=== PATIENT | male | born 1955 | race Caucasian/White ===

== ENCOUNTER 2023-04-05 15:59 | Inpatient (IN) | payer MEDICARE, OTHER ==
[~2023-04-05] VITALS: Ht 177.8 cm; Wt 111.1 kg
[2023-04-05] MEDS ORDERED: IV NS 0.9% 1,000 ML BAG IV ONE (16:30)
[2023-04-05 16:51] LABS: HEMATOCRIT 37 % (39-51); HEMOGLOBIN 12.5 g/dL (13.5-17.5); MEAN CORPUSCULAR VOLUME 95 fL (80-96); RED BLOOD CELL COUNT(AUTO) 3.95 MIL/uL (4.5-6.0); WHITE BLOOD COUNT (AUTO) 10.2 K/uL (4.3-11.0)
[2023-04-05 16:52] LABS: BASOPHILS % (AUTO) 0.4 % (0.0-2.0); EOSINOPHILS # (AUTO) 0.1 K/uL (0.0-0.7); EOSINOPHILS % (AUTO) 0.6 % (0.0-6.0); LYMPHOCYTES # (AUTO) 1.5 K/uL (0.8-4.8); LYMPHOCYTES % (AUTO) 14.5 % (20.0-44.0); MEAN CORPUSCULAR HEMOGLOBIN 32 PG (26.0-33.0); MEAN CORPUSCULAR HGB CONC 34 g/dl (31.0-36.0); MONOCYTES # (AUTO) 0.7 K/uL (0.1-1.30); MONOCYTES % (AUTO) 6.9 % (2.0-12.0); NEUTROPHILS # (AUTO) 7.9 K/uL (1.8-8.9); NEUTROPHILS % (AUTO) 77.6 % (43.0-81.0); PLATELET COUNT (AUTO) 315 K/uL (150-450); RED CELL DISTRIBUTION WIDTH 14.9 % (11.5-15.0)
[2023-04-05] MEDS ORDERED: PANT40TA2 PO (16:59)
[2023-04-05] MEDS ORDERED: ACET-868 PO (16:59)
[2023-04-05] MEDS ORDERED: CARB1TAB21 PO (16:59)
[2023-04-05] MEDS ORDERED: RISP0.5T65 PO (16:59)
[2023-04-05] MEDS ORDERED: ROPI3TAB4 PO (16:59)
[2023-04-05] MEDS ORDERED: ATEN50TA PO (16:59)
[2023-04-05] MEDS ORDERED: AMLO5TAB4 PO (16:59)
[2023-04-05] MEDS ORDERED: [UNRECOGNIZED DRUG - OTHER] PO (16:59)
[2023-04-05] MEDS ORDERED: GABA300C PO (16:59)
[2023-04-05] MEDS ORDERED: ASCO-340 PO (16:59)
[2023-04-05] MEDS ORDERED: MAGN400O6 PO (16:59)
[2023-04-05] MEDS ORDERED: NYST30CR2 TP (16:59)
[2023-04-05] MEDS ORDERED: FLUO40CA49 PO (16:59)
[2023-04-05] MEDS ORDERED: DOCU100C36 PO (16:59)
[2023-04-05] MEDS ORDERED: BENA40TA8 PO (16:59)
[2023-04-05] MEDS ORDERED: NAPR-1192 PO (16:59)
[2023-04-05] MEDS ORDERED: CHOL200059 PO (16:59)
[2023-04-05 17:02] LABS: CALCIUM, SERUM 8.3 mg/dL (8.5-10.1); CARBON DIOXIDE 27 mmol/L (21-32); CHLORIDE 107 mmol/L (98-107); CREATININE 1.5 mg/dL (0.6-1.3); GLUCOSE 137 mg/dL (74-106); POTASSIUM 3.7 mmol/L (3.5-5.1); SODIUM SERUM 142 mmol/L (136-145); UREA NITROGEN, BLOOD 24 mg/dL (7-18)
[2023-04-05 17:03] LABS: SERUM AMMONIA 13 umol/L (11-32)
[2023-04-05 17:05] LABS: INR 1.04 (0.91-1.10); PARTIAL THROMBOPLASTIN TIME 27.3 SEC (24.3-34.3)
[2023-04-05 17:08] LABS: ALANINE AMINOTRANSFERASE 19 U/L (12-78); ALBUMIN 3.3 g/dL (3.4-5.0); ALKALINE PHOSPHATASE 171 U/L (46-116); ASPARTATE AMINOTRANSFERASE 31 U/L (15-37); BILIRUBIN,DIRECT 0.2 mg/dL (0.0-0.2); BILIRUBIN,TOTAL 0.5 mg/dL (0.2-1.0); TOTAL PROTEIN, SERUM 7.3 g/dL (6.4-8.2)
[2023-04-05 17:25] LABS: ACETAMINOPHEN <10 ug/ml (10-30); ALCOHOL, BLOOD < 3 mg/dL (0-10); SALICYLATE 0.6 mg/dL (2.8-20.0)
[2023-04-05] MEDS ORDERED: MAG HYDROX/AL HYDROX/SIMETH 30 ML UDC PO PRN (18:30)
[2023-04-05] MEDS ORDERED: Z GUARD REMEDY 4 OZ OINT TP PRN (18:30)
[2023-04-05] MEDS ORDERED: MAGNESIUM HYDROXIDE 30 ML UDC PO PRN (18:30)
[2023-04-05] MEDS ORDERED: ACETAMINOPHEN 325 MG TABLET PO PRN ×2 (18:30→19:30)
[2023-04-05] MEDS ORDERED: ONDANSETRON HCL/PF 4 MG/2 ML VIAL IVP PRN (18:30)
[2023-04-05 18:46] LABS: APPEARANCE,URINE CLEAR (CLEAR); BILIRUBIN,URINE NEGATIVE (NEGATIVE); BLOOD, URINE NEGATIVE Ery/uL (NEGATIVE); COLOR,URINE YELLOW (YELLOW); KETONES,URINE TRACE mg/dL (NEGATIVE); LEUKOCYTE ESTERASE ,URINE NEGATIVE (NEGATIVE); NITRITE, URINE NEGATIVE (NEGATIVE); PH,URINE 5.5 (5.0-8.0); PROTEIN,URINE NEGATIVE (NEGATIVE); UGLUCOSE NEGATIVE (NEGATIVE)
[2023-04-05 19:02] LABS: AMPHETAMINE, URINE NEGATIVE (NEGATIVE); BARBITURATE, URINE NEGATIVE (NEGATIVE); BENZODIAZEPINE, URINE NEGATIVE (NEGATIVE); CANNABINOID, URINE NEGATIVE (NEGATIVE); COCCAINE, URINE NEGATIVE (NEGATIVE); OPIATE, URINE NEGATIVE (NEGATIVE); PHENCYCLIDINE SCREEN,URINE NEGATIVE (NEGATIVE)
[2023-04-05] MEDS ORDERED: NAPROXEN 375 MG TABLET.DR PO PRN (19:30)
[2023-04-05 22:00] VITALS: BP 132/86; TEMP 98.2; O2SAT 98
[2023-04-05] MEDS: ropiniROLE 0.5 MG TABLET PO SCH (22:11)
[2023-04-05] MEDS: GABAPENTIN 300 MG CAPSULE PO SCH (22:11)
[2023-04-05] MEDS: CARBIDOPA/LEVODOPA 25/100 MG 1 UDTAB PO SCH (22:11)
[2023-04-05] MEDS: IV NS 0.9% 1,000 ML IV PRN (23:07)
[2023-04-06] VITALS: BP 114/82; TEMP 97.1; O2SAT 96
[2023-04-06 04:00] VITALS: BP 112/81; TEMP 98.2; O2SAT 96
[2023-04-06 09:00] LABS: BASOPHILS % (AUTO) 0.5 % (0.0-2.0); EOSINOPHILS % (AUTO) 0.5 % (0.0-6.0); HEMATOCRIT 37 % (39-51); HEMOGLOBIN 12.3 g/dL (13.5-17.5); LYMPHOCYTES # (AUTO) 1.2 K/uL (0.8-4.8); LYMPHOCYTES % (AUTO) 12.2 % (20.0-44.0); MEAN CORPUSCULAR HEMOGLOBIN 31 PG (26.0-33.0); MEAN CORPUSCULAR HGB CONC 33 g/dl (31.0-36.0); MEAN CORPUSCULAR VOLUME 94 fL (80-96); MONOCYTES # (AUTO) 0.4 K/uL (0.1-1.30); MONOCYTES % (AUTO) 4.5 % (2.0-12.0); NEUTROPHILS % (AUTO) 82.3 % (43.0-81.0); PLATELET COUNT (AUTO) 282 K/uL (150-450); RED BLOOD CELL COUNT(AUTO) 3.94 MIL/uL (4.5-6.0); RED CELL DISTRIBUTION WIDTH 14.2 % (11.5-15.0); WHITE BLOOD COUNT (AUTO) 9.7 K/uL (4.3-11.0)
[2023-04-06 09:10] LABS: CREATININE 1.2 mg/dL (0.6-1.3); MAGNESIUM 2.2 mg/dL (1.8-2.4); PHOSPHORUS 3.5 mg/dL (2.5-4.9); POTASSIUM 3.7 mmol/L (3.5-5.1)
[2023-04-06] MEDS: ASCORBIC ACID 500 MG TABLET PO SCH (09:10)
[2023-04-06] MEDS: ATENOLOL 50 MG TABLET PO SCH (09:11)
[2023-04-06] MEDS: risperiDONE 0.25 MG TABLET PO SCH ×2 (09:11→17:45)
[2023-04-06] MEDS: AMLODIPINE BESYLATE 5 MG TABLET PO SCH (09:11)
[2023-04-06] MEDS: DOCUSATE SODIUM 100 MG CAPSULE PO SCH (09:11)
[2023-04-06] MEDS: MAGNESIUM HYDROXIDE 30 ML UDC PO SCH (09:11)
[2023-04-06] MEDS: ropiniROLE 0.5 MG TABLET PO SCH ×4 (09:12→21:53)
[2023-04-06] MEDS: CARBIDOPA/LEVODOPA 25/100 MG 1 UDTAB PO SCH ×4 (09:12→21:54)
[2023-04-06] MEDS: NYSTATIN CREAM 15 GM TUBE TP SCH ×2 (09:12→17:47)
[2023-04-06] MEDS: FLUOXETINE HCL 20 MG CAPSULE PO SCH (09:12)
[2023-04-06] MEDS: PANTOPRAZOLE 40 MG TABLET.DR PO SCH (09:14)
[2023-04-06 10:33] VITALS: BP 132/81; TEMP 98.2; O2SAT 96
[2023-04-06 12:10] VITALS: BP 132/81; TEMP 98.2; O2SAT 96
[2023-04-06] MEDS: GABAPENTIN 300 MG CAPSULE PO SCH (21:54)
[2023-04-06] MEDS: LORAZEPAM 0.5 MG TABLET PO PRN (22:00)
[2023-04-07] MEDS: risperiDONE 0.25 MG TABLET PO SCH ×2 (09:00→17:16)
[2023-04-07] MEDS: FLUOXETINE HCL 20 MG CAPSULE PO SCH (09:00)
[2023-04-07] MEDS: MAGNESIUM HYDROXIDE 30 ML UDC PO SCH (09:00)
[2023-04-07] MEDS: ropiniROLE 0.5 MG TABLET PO SCH ×4 (09:00→22:19)
[2023-04-07] MEDS: ASCORBIC ACID 500 MG TABLET PO SCH (09:01)
[2023-04-07] MEDS: DOCUSATE SODIUM 100 MG CAPSULE PO SCH (09:01)
[2023-04-07] MEDS: PANTOPRAZOLE 40 MG TABLET.DR PO SCH (09:01)
[2023-04-07] MEDS: CARBIDOPA/LEVODOPA 25/100 MG 1 UDTAB PO SCH ×4 (09:01→22:18)
[2023-04-07] MEDS: ATENOLOL 50 MG TABLET PO SCH (09:02)
[2023-04-07] MEDS: AMLODIPINE BESYLATE 5 MG TABLET PO SCH (09:02)
[2023-04-07] MEDS: NYSTATIN CREAM 15 GM TUBE TP SCH ×2 (09:12→17:27)
[2023-04-07 20:41] VITALS: BP 100/63; TEMP 98.6; O2SAT 98
[2023-04-07] MEDS: GABAPENTIN 300 MG CAPSULE PO SCH (22:18)
[2023-04-08 04:02] VITALS: BP 96/67; TEMP 98.8; O2SAT 98
[2023-04-08 07:04] LABS: BASOPHILS % (AUTO) 0.3 % (0.0-2.0); EOSINOPHILS # (AUTO) 0.2 K/uL (0.0-0.7); EOSINOPHILS % (AUTO) 1.5 % (0.0-6.0); HEMATOCRIT 38 % (39-51); HEMOGLOBIN 12.5 g/dL (13.5-17.5); LYMPHOCYTES # (AUTO) 1.7 K/uL (0.8-4.8); LYMPHOCYTES % (AUTO) 16.3 % (20.0-44.0); MEAN CORPUSCULAR HEMOGLOBIN 32 PG (26.0-33.0); MEAN CORPUSCULAR HGB CONC 33 g/dl (31.0-36.0); MEAN CORPUSCULAR VOLUME 96 fL (80-96); MONOCYTES # (AUTO) 0.7 K/uL (0.1-1.30); NEUTROPHILS # (AUTO) 7.6 K/uL (1.8-8.9); NEUTROPHILS % (AUTO) 74.9 % (43.0-81.0); PLATELET COUNT (AUTO) 255 K/uL (150-450); RED BLOOD CELL COUNT(AUTO) 3.94 MIL/uL (4.5-6.0); RED CELL DISTRIBUTION WIDTH 14.3 % (11.5-15.0); WHITE BLOOD COUNT (AUTO) 10.2 K/uL (4.3-11.0)
[2023-04-08 07:25] LABS: ALBUMIN 2.8 g/dL (3.4-5.0); BILIRUBIN,TOTAL 0.7 mg/dL (0.2-1.0); CALCIUM, SERUM 8.3 mg/dL (8.5-10.1); CREATININE 1.2 mg/dL (0.6-1.3); MAGNESIUM 2.5 mg/dL (1.8-2.4); PHOSPHORUS 3.5 mg/dL (2.5-4.9); POTASSIUM 3.8 mmol/L (3.5-5.1)
[2023-04-08 07:37] LABS: TOTAL PROTEIN, SERUM 6.8 g/dL (6.4-8.2)
[2023-04-08 08:44] VITALS: BP 118/59; TEMP 98.2; O2SAT 97
[2023-04-08] MEDS: CARBIDOPA/LEVODOPA 25/100 MG 1 UDTAB PO SCH ×4 (08:53→21:09)
[2023-04-08] MEDS: risperiDONE 0.25 MG TABLET PO SCH ×2 (08:53→17:03)
[2023-04-08] MEDS: MAGNESIUM HYDROXIDE 30 ML UDC PO SCH (08:53)
[2023-04-08] MEDS: ASCORBIC ACID 500 MG TABLET PO SCH (08:53)
[2023-04-08] MEDS: DOCUSATE SODIUM 100 MG CAPSULE PO SCH (08:54)
[2023-04-08] MEDS: FLUOXETINE HCL 20 MG CAPSULE PO SCH (08:54)
[2023-04-08] MEDS: ATENOLOL 50 MG TABLET PO SCH ×2 (08:55→09:00)
[2023-04-08] MEDS: AMLODIPINE BESYLATE 5 MG TABLET PO SCH ×2 (08:55→09:00)
[2023-04-08] MEDS: PANTOPRAZOLE 40 MG TABLET.DR PO SCH (08:58)
[2023-04-08] MEDS: NYSTATIN CREAM 15 GM TUBE TP SCH ×2 (09:06→17:03)
[2023-04-08] MEDS: ropiniROLE 0.5 MG TABLET PO SCH ×4 (10:13→21:11)
[2023-04-08 12:00] VITALS: BP 109/86; TEMP 97.7; O2SAT 97
[2023-04-08 20:00] VITALS: BP 97/49; TEMP 99.1; O2SAT 97
[2023-04-08] MEDS: IV NS 0.9% 1,000 ML IV PRN (20:00)
[2023-04-08] MEDS: GABAPENTIN 300 MG CAPSULE PO SCH (21:09)
[2023-04-08 22:00] VITALS: BP 97/49; TEMP 99.1; O2SAT 97
[2023-04-09] VITALS: BP 101/69; TEMP 98.7; O2SAT 100
[2023-04-09 04:00] VITALS: BP 101/69; TEMP 98.7; O2SAT 100
[2023-04-09 05:52] LABS: BASOPHILS # (AUTO) 0.1 K/uL (0.0-0.2); BASOPHILS % (AUTO) 0.5 % (0.0-2.0); EOSINOPHILS # (AUTO) 0.1 K/uL (0.0-0.7); HEMATOCRIT 37 % (39-51); HEMOGLOBIN 12.2 g/dL (13.5-17.5); LYMPHOCYTES # (AUTO) 1.8 K/uL (0.8-4.8); LYMPHOCYTES % (AUTO) 14.8 % (20.0-44.0); MEAN CORPUSCULAR HEMOGLOBIN 31 PG (26.0-33.0); MEAN CORPUSCULAR HGB CONC 33 g/dl (31.0-36.0); MEAN CORPUSCULAR VOLUME 94 fL (80-96); MONOCYTES # (AUTO) 0.7 K/uL (0.1-1.30); MONOCYTES % (AUTO) 6.2 % (2.0-12.0); NEUTROPHILS # (AUTO) 9.3 K/uL (1.8-8.9); NEUTROPHILS % (AUTO) 77.5 % (43.0-81.0); PLATELET COUNT (AUTO) 271 K/uL (150-450); RED BLOOD CELL COUNT(AUTO) 3.93 MIL/uL (4.5-6.0); RED CELL DISTRIBUTION WIDTH 14.2 % (11.5-15.0); WHITE BLOOD COUNT (AUTO) 11.9 K/uL (4.3-11.0)
[2023-04-09 06:06] LABS: BILIRUBIN,TOTAL 0.9 mg/dL (0.2-1.0); CALCIUM, SERUM 8.3 mg/dL (8.5-10.1); CREATININE 1.1 mg/dL (0.6-1.3); MAGNESIUM 2.4 mg/dL (1.8-2.4); PHOSPHORUS 3.5 mg/dL (2.5-4.9); TOTAL PROTEIN, SERUM 6.9 g/dL (6.4-8.2)
[2023-04-09] MEDS: risperiDONE 0.25 MG TABLET PO SCH (08:22)
[2023-04-09] MEDS: FLUOXETINE HCL 20 MG CAPSULE PO SCH (08:23)
[2023-04-09] MEDS: DOCUSATE SODIUM 100 MG CAPSULE PO SCH (08:23)
[2023-04-09] MEDS: PANTOPRAZOLE 40 MG TABLET.DR PO SCH (08:23)
[2023-04-09] MEDS: AMLODIPINE BESYLATE 5 MG TABLET PO SCH (08:23)
[2023-04-09] MEDS: ATENOLOL 50 MG TABLET PO SCH ×2 (08:23→11:13)
[2023-04-09] MEDS: ASCORBIC ACID 500 MG TABLET PO SCH (08:24)
[2023-04-09] MEDS: MAGNESIUM HYDROXIDE 30 ML UDC PO SCH (08:24)
[2023-04-09] MEDS: CARBIDOPA/LEVODOPA 25/100 MG 1 UDTAB PO SCH (08:24)
[2023-04-09] MEDS: ropiniROLE 0.5 MG TABLET PO SCH (08:24)
[2023-04-09] MEDS: NYSTATIN CREAM 15 GM TUBE TP SCH (08:25)
[2023-04-09] MEDS: LORAZEPAM 0.5 MG TABLET PO PRN (10:48)
[2023-04-09 11:13] VITALS: BP 111/74
== END 2023-04-09 11:35 | DRG 682 ==
LOC: ER 16:20 → TELE1 20:24 → MEDSG1 04-06 00:34
PROVIDERS: ADMIT Internal Medicine; ATTEND Internal Medicine
DX: N17.0 Acute kidney failure with tubular necrosis (principal); E43 Unspecified severe protein-calorie malnutrition; G93.41 Metabolic encephalopathy; F20.0 Paranoid schizophrenia; G20.A1 Parkinson's disease without dyskinesia, without mention of fluctuations; D64.9 Anemia, unspecified; E86.0 Dehydration; E83.41 Hypermagnesemia; K21.9 Gastro-esophageal reflux disease without esophagitis; E88.09 Other disorders of plasma-protein metabolism, not elsewhere classified; F32.9 Major depressive disorder, single episode, unspecified; M89.8X9 Other specified disorders of bone, unspecified site; R53.1 Weakness; I10 Essential (primary) hypertension; R26.89 Other abnormalities of gait and mobility; Z68.35 Body mass index [BMI] 35.0-35.9, adult; E83.9 Disorder of mineral metabolism, unspecified; F29 Unspecified psychosis not due to a substance or known physiological condition
CPT/HCPCS: 36415; 70450-TC; 71045-TC; 80048-TC; 80053-TC; 80076-TC; 82140-TC; 83735-TC; 84100-TC; 84443-TC; 84484-TC; 85025-TC; 85730-TC; 87081-TC; 87086-TC; 97110-TC; 97116-TC; 97530-TC; A4223; A4349; G0378; G0480; J7030